=== PATIENT | male | born 1955 | race Caucasian/White ===

== ENCOUNTER 2016-08-15 14:36 | Observation (INO) | payer OTHER ==
--- NOTE | 2016-08-15 15:13 | EDPHY ---
H & P Stated Complaint: dx DVT today, L leg Time Seen by Provider: 08/15/16 14:52 HPI/ROS: CHIEF COMPLAINT: Left leg pain and swelling HISTORY OF PRESENT ILLNESS: The patient is a 60-year-old man who comes to the emergency department complete left leg pain and swelling. He was referred to us from Radiology where he had a ultrasound positive for extensive left-sided DVT from the proximal femoral vein down to the calf including the popliteal vein. Not including the common femoral vein. He states that he began noticing pain in his thigh and then lower leg 1 week ago. He has not had any recent surgery. He did have this left knee replaced in December of 2015. [place] [address] [place]. He does not smoke. No recent procedures. He does have a history of DVT in the other side over 20 years ago treated with Coumadin for 1 month. REVIEW OF SYSTEMS: Constitutional: denies: chills, fever, recent illness, recent injury EENTM: denies: blurred vision, double vision, nose congestion Respiratory: denies: cough, shortness of breath Cardiac: denies: chest pain, irregular heart rate, lightheadedness, palpitations Gastrointestinal/Abdominal: denies: abdominal pain, diarrhea, nausea, vomiting, blood streaked stools Genitourinary: denies: dysuria, frequency, hematuria, pain Musculoskeletal: See HPI Skin: denies: lesions, rash, jaundice, bruising Neurological: denies: headache, numbness, paresthesia, tingling, dizziness, weakness Hematologic/Lymphatic: denies: blood clots, easy bleeding, easy bruising Immunologic/allergic: denies: HIV/AIDS, transplant EXAM: GENERAL: Well-appearing, well-nourished and in no acute distress. HEAD: Atraumatic, normocephalic. EYES: Pupils equal round and reactive to light, extraocular movements intact, sclera anicteric, conjunctiva are normal. ENT: TMs normal, nares patent, oropharynx clear without exudates. Moist mucous membranes. NECK: Normal range of motion, supple without lymphadenopathy or JVD. LUNGS: Breath sounds clear to auscultation bilaterally and equal. No wheezes rales or rhonchi. HEART: Regular rate and rhythm without murmurs, rubs or gallops. ABDOMEN: Soft, nontender, normoactive bowel sounds. No guarding, no rebound. No masses appreciated. BACK: No CVA tenderness, no spinal tenderness, step-offs or deformities EXTREMITIES: Left leg mild edema, normal pulses and sensation, normal temperature, normal color NEUROLOGICAL: Cranial nerves II through XII grossly intact. Normal speech, normal gait. 5/5 strength, normal movement in all extremities, normal sensation PSYCH: Normal mood, normal affect. SKIN: Warm, dry, normal turgor, no visible rashes or lesions. Source: Patient Exam Limitations: No limitations - Personal History Current Tetanus/Diphtheria Vaccine: Yes Current Tetanus Diphtheria and Acellular Pertussis (TDAP): Yes Tetanus Vaccine Date: 2011 - Medical/Surgical History Hx Asthma: No Hx Chronic Respiratory Disease: No Hx Diabetes: No Hx Cardiac Disease: No Hx Renal Disease: No Hx Cirrhosis: No Hx Alcoholism: No Hx HIV/AIDS: No Hx Splenectomy or Spleen Trauma: No Other PMH: htn, dvt in 89 after knee surgery, arthroscopic kneee x 4 - Family History Significant Family History: No pertinent family hx - Social History Smoking Status: Never smoked Alcohol Use: Sober Drug Use: None Constitutional: Initial Vital Signs Temperature (C) 36.4 C 08/15/16 14:44 Heart Rate 108 H 08/15/16 14:44 Respiratory Rate 16 08/15/16 14:44 Blood Pressure 178/105 H 08/15/16 14:44 O2 Sat (%) 96 08/15/16 14:44 O2 Delivery Mode Room Air Allergies/Adverse Reactions: No Known Allergies Allergy (Verified 08/15/16 14:42) Home Medications: Medication Instructions Recorded Losartan/Hydrochlorothiazide 1 each PO DAILY 08/15/16 [Hyzaar 100-12.5 Tablet] Medical Decision Making ED Course/Re-evaluation: I spoke with the physician title i instructional assistant Andrew Andrew for Dr. Rai. She states that they typically keep these patients in the hospital with more extensive DVTs rather than outpatient Xarelto. I will start him on heparin and consult the hospital service. Dr. Felton request Lovenox. 3:30 p.m. I had consulted interventional Radiology who will assess for possibility of thrombectomy. Differential Diagnosis: Partial list of the Differential diagnosis considered include but were not limited to; DVT, thrombus, ischemia, aneurysm, dolens and although unlikely based on the history and physical exam, I also considered infection, dissection. - Data Points Laboratory Results: Laboratory Results 08/15/16 15:15 08/15/16 15:15 08/15/16 15:15 WBC 11.43 H 10^3/uL (3.80-9.50) RBC 5.67 10^6/uL (4.40-6.38) Hgb 14.8 g/dL (13.7-17.5) Hct 44.6 % (40.0-51.0) MCV 78.7 L fL (81.5-99.8) MCH 26.1 L pg (27.9-34.1) MCHC 33.2 g/dL (32.4-36.7) RDW 13.8 % (11.5-15.2) Plt Count 273 10^3/uL (150-400) MPV 9.2 fL (8.7-11.7) Neut % (Auto) 69.5 % (39.3-74.2) Lymph % (Auto) 17.7 % (15.0-45.0) [place] % (Auto) 9.7 % (4.5-13.0) Eos % (Auto) 2.4 % (0.6-7.6) Baso % (Auto) 0.3 % (0.3-1.7) Nucleat RBC Rel Count 0.0 % (0.0-0.2) Absolute Neuts (auto) 7.95 H 10^3/uL (1.70-6.50) Absolute Lymphs (auto) 2.02 10^3/uL (1.00-3.00) Absolute Monos (auto) 1.11 H 10^3/uL (0.30-0.80) Absolute Eos (auto) 0.27 10^3/uL (0.03-0.40) Absolute Basos (auto) 0.03 10^3/uL (0.02-0.10) Absolute Nucleated RBC 0.00 10^3/uL (0-0.01) Immature Gran % 0.4 % (0.0-1.1) Immature Gran # 0.05 10^3/uL (0.00-0.10) PT 13.5 SEC (12.0-15.0) INR 1.04 (0.83-1.16) APTT 30.2 SEC (23.0-38.0) Sodium 141 mEq/L (134-144) Potassium 4.0 mEq/L (3.5-5.2) Chloride 102 mEq/L (97-110) Carbon Dioxide 24 mEq/l (22-31) Anion Gap 15 mEq/L (8-16) BUN 17 mg/dL (7-23) Creatinine 0.9 mg/dL (0.7-1.3) Estimated GFR > 60 Glucose 84 mg/dL (70-100) Calcium 9.7 mg/dL (8.5-10.4) Medications Given: Discontinued Medications Enoxaparin Sodium (Lovenox) 90 mg SC ONCE ONE Stop: 08/15/16 16:01 Last Admin: 08/15/16 16:09 Dose: 90 mg Departure - Departure Disposition: [facility] Inpatient Acute Clinical Impression: DVT (deep venous thrombosis) Qualifiers: DVT location: lower extremity Affected thrombotic vein of extremity: femoral Laterality: left Chronicity: acute Qualifier Code: (I82.412) Acute embolism and thrombosis of left femoral vein Condition: Fair
[2016-08-15 15:32] LABS: % IMMATURE GRANULYOCYTES 0.4 % (0.0-1.1); ABSOLUTE IMMATURE GRANULOCYTES 0.05 10^3/uL (0.00-0.10); ADD DIFF? NO; ADD MORPH? NO; ADD SCAN? NO; ATYPICAL LYMPHOCYTE FLAG 0 (0-99); FRAGMENT RBC FLAG 0 (0-99); HEMATOCRIT 44.6 % (40.0-51.0); HEMOGLOBIN 14.8 g/dL (13.7-17.5); LEFT SHIFT FLG 0 (0-99); LIPEMIA HEMOLYSIS FLAG 80 (0-99); MEAN CELL HEMOGLOBIN 26.1 pg (27.9-34.1); MEAN CELL HEMOGLOBIN CONCENTR. 33.2 g/dL (32.4-36.7); MEAN CELL VOLUME 78.7 fL (81.5-99.8); MEAN PLATELET VOLUME 9.2 fL (8.7-11.7); PLATELET CLUMPS FLAG 0 (0-99); PLATELET COUNT 273 10^3/uL (150-400); RED BLOOD CELL COUNT 5.67 10^6/uL (4.40-6.38); RED CELL DISTRIBUTION WIDTH 13.8 % (11.5-15.2)
[2016-08-15 15:41] LABS: INR 1.04 (0.83-1.16); PROTIME(PATIENT) 13.5 SEC (12.0-15.0)
[2016-08-15 15:42] LABS: APTT 30.2 SEC (23.0-38.0)
[2016-08-15 15:44] LABS: ANION GAP 15 mEq/L (8-16); CALCIUM 9.7 mg/dL (8.5-10.4); CARBON DIOXIDE 24 mEq/l (22-31); CHLORIDE 102 mEq/L (97-110); CREATININE 0.9 mg/dL (0.7-1.3); GLOMERULAR FILTRATION RATE > 60; GLUCOSE 84 mg/dL (70-100); SODIUM 141 mEq/L (134-144)
[2016-08-15] MEDS ORDERED: ONDANSETRON 4 MG/2 ML VIAL IVP PRN (15:57)
[2016-08-15] MEDS ORDERED: ACETAMINOPHEN 325 MG TAB PO PRN (15:57)
[2016-08-15] MEDS ORDERED: ONDANSETRON DISINTEGRATING 4 MG TAB PO PRN (15:57)
[2016-08-15] MEDS ORDERED: ENOXAPARIN 100 MG/ML SYR SC ONE (16:00)
--- NOTE | 2016-08-15 17:34 | GHP ---
[f rep st] HISTORY AND PHYSICAL DATE OF ADMISSION: 08/15/2016 CHIEF COMPLAINT: Left lower extremity pain. HISTORY OF PRESENT ILLNESS: A 60-year-old male who had a left total knee arthroplasty in December of 2015 , prescribed postoperative prophylaxis with Xarelto, who presents with complaints of progressing disc omfort of left lower extremity and swelling. Patient was sent by his outpatient orthopedic team for ultrasound and found to have a large DVT from his left femoral down to the popliteal. Patient denies any numbness or tingling in that extremity. Is experiencing some pain, but mild. Denies any pleuriti c chest pain, any shortness of breath, any nausea, vomiting, changes in his bowel habits, dysuria, he maturia. The patient reports that during his right total knee arthroplasty, he had an unusual and pa inful sensation of blood rushing into his extremity and he attributed that to his Xarelto prophylaxis therefore, chose not to use the medication during his left knee arthroplasty. Patient has had a his tory of previous postoperative DVT associated with surgery performed in the . For that, he was tr eated with warfarin therapy for several months postoperatively. PAST MEDICAL HISTORY: Hypertension. FAMILY HISTORY: Negative for any known clotting disorders. SOCIAL HISTORY: Negative for tobacco. Drinks a couple beers at night. Has not used marijuana in ov er a year. ADVANCED DIRECTIVES: He is full cor, full tube. His would be his medical decision-maker. REVIEW OF SYSTEMS: A 10-point review of systems is negative with the exception of that reported in t he HPI. PHYSICAL EXAMINATION: VITAL SIGNS: Blood pressure is 164/94, heart rate 84, respiratory rate 16, 95 % on room air, 36.9. GENERAL: This is a healthy-appearing middle-aged male, in no acute distress. HEENT: Notable for moist mucous membranes. Eyes are negative for any icterus. CARDIAC: Patient is regular rate and rhythm. PULMONARY: Good respiratory effort, is clear to auscultation bilaterally. GASTROINTESTINAL: Positive bowel sounds. Soft, nontender in all 4 quadrants. MUSCULOSKELETAL: N otable for trace lower extremity edema on the left, none on the right. CARDIOVASCULAR: Patient has palpable pulses bilaterally pedally. SKIN: Negative for any rashes. NEUROLOGIC: He is alert and oriented x3. PSYCHIATRIC: Pleasant and cooperative on interview and examination. IMAGING: Ultrasound of the lower extremity, which I reviewed, shows a large DVT in the left lower ex tremity, including femoral, popliteal, and posterior tibioperoneal veins. LABORATORY DATA: White count 11.4, hematocrit 44.6, platelet count of 273. INR 1.04. Creatinine 0.9 . Telemetry, which I personally reviewed and interpreted, shows sinus rhythm. ASSESSMENT AND PLAN: This is a 60-year-old male, presenting with left lower extremity swelling and p ain. 1. Acute left lower extremity deep venous thrombosis: Have high suspicion that the patient may have been growing this DVT in his left lower extremity since his postoperative time period based on his history and lack of use of prophylaxis postop. Certainly, cannot confirm this based on the radiograp hic findings of his thrombus. Will initiate Lovenox therapy this evening. Dr. Rai has requested the patient be admitted and monitored overnight, and choice of anticoagulant can be chosen by Fredi and the patient in the morning. He obviously has concerns about the use of Xarelto. Interventional Radiology has been consulted from the emergency department to evaluate the imaging and make recommend ations regarding thrombectomy versus thrombolysis if appropriate based on clot size. At this time, t he patient has good pulses and his pain is not difficult to control. It is unlikely that they will c hoose to intervene. 2. Recurrent deep venous thrombosis: Again, both have happened in a postoperative time period. It may be appropriate for the patient to be evaluated by Hematology/Oncology as an outpatient down the r oad. 3. Hypertension: Will continue patient's home antihypertensives once reconciled. 4. Prophylaxis: Will be on treatment dosed Lovenox overnight. 5. Diet: Regular. DISPOSITION: I expect less than 2-midnights as the patient is presenting with DVT, normal vital sign s and if remains stable, should be a candidate for discharge. I spoke and reviewed the case with the emergency room physician. Patient will be triaged to the [facility] observation unit for care. /[id number]/MODL
[2016-08-15] MEDS ORDERED: ACETAMN/DIPHENHYDRAMINE 500/25MG TAB PO SCH (23:00)
[2016-08-16 05:48] LABS: % IMMATURE GRANULYOCYTES 0.4 % (0.0-1.1); ABSOLUTE IMMATURE GRANULOCYTES 0.04 10^3/uL (0.00-0.10); ADD DIFF? NO; ADD MORPH? NO; ADD SCAN? NO; ATYPICAL LYMPHOCYTE FLAG 10 (0-99); FRAGMENT RBC FLAG 0 (0-99); HEMATOCRIT 43.3 % (40.0-51.0); HEMOGLOBIN 13.9 g/dL (13.7-17.5); LEFT SHIFT FLG 0 (0-99); LIPEMIA HEMOLYSIS FLAG 80 (0-99); MEAN CELL HEMOGLOBIN 25.7 pg (27.9-34.1); MEAN CELL HEMOGLOBIN CONCENTR. 32.1 g/dL (32.4-36.7); MEAN CELL VOLUME 80.2 fL (81.5-99.8); MEAN PLATELET VOLUME 9.5 fL (8.7-11.7); PLATELET CLUMPS FLAG 0 (0-99); PLATELET COUNT 251 10^3/uL (150-400)
[2016-08-16 06:10] LABS: ANION GAP 12 mEq/L (8-16); CALCIUM 8.8 mg/dL (8.5-10.4); CARBON DIOXIDE 27 mEq/l (22-31); CHLORIDE 103 mEq/L (97-110); CREATININE 0.9 mg/dL (0.7-1.3); GLOMERULAR FILTRATION RATE > 60; GLUCOSE 89 mg/dL (70-100); SODIUM 142 mEq/L (134-144)
[2016-08-16 08:03] VITALS: BP 133/81; PULSE 82; RESP 16; TEMP 98.3; O2SAT 93
[2016-08-16] MEDS ORDERED: ENOXAPARIN 80 MG/0.8 ML SYR SC SCH (09:00)
[2016-08-16] MEDS ORDERED: NON-FORMULARY NEW DRUG (Losartan/Hydrochlorothiazide [Hyzaar 100-12.5 Tablet] 1 EACH) PO SCH (09:00)
[2016-08-16] MEDS ORDERED: LOSARTAN POTASSIUM 50 MG TAB PO SCH (09:00)
[2016-08-16] MEDS ORDERED: LOSARTAN/HCTZ 50/12.5 1 TAB PO SCH (09:00)
[2016-08-16] MEDS ORDERED: ENOXAPARIN 100 MG/ML SYR SC SCH (09:00)
[2016-08-16] MEDS ORDERED: WARFARIN SODIUM 5 MG TAB PO ONE (15:08)
--- NOTE | 2016-08-16 16:50 | PDDCSUM ---
Discharge Summary Discharge Summary: DISCHARGE SUMMARY FOLLOW-UP ITEMS: Follow-up PT and INR on 08/21/[address] [facility]. DATE OF ADMISSION: 08/15/2016 DATE OF DISCHARGE: 08/16/2016 DISCHARGE DIAGNOSES: 1. Acute deep venous thrombosis CONSULTATIONS: Orthopedics by Dr. Rai, interventional Radiology by Dr. Pride PROCEDURES / IMAGING: Lower extremity ultrasound demonstrating left lower extremity deep venous thrombosis CHIEF COMPLAINT: Left lower extremity heaviness and swelling SUBJECTIVE: Patient reports that he is able to ambulate safely and is not experiencing pain in his left lower extremity PHYSICAL EXAM ON DISCHARGE: Systolic blood pressure is 1 30, heart rate in the 80s, afebrile overnight, satting well on room air, pulses intact in his left lower extremity dorsalis pedis, patient has evidence of soft tissue edema but there is minimal tenderness in the left lower extremity, motor strength 5/5 left hip flexor LABS ON DISCHARGE: Hemoglobin 13.9, creatinine 0.8, white blood cell count [id number] HOSPITAL COURSE BY PROBLEM: 1. Acute deep venous thrombosis. Located in the left lower extremity, most likely provoked in the setting of recent immobility, unlikely to be related to his left knee orthopedic surgery which took place approximately 6 months ago. This should be characterized as a recurrent deep venous thrombosis given that patient did experience 1 in his right lower extremity following surgery in his right knee. The patient will require at least 3 months of systemic anticoagulation then may require lifelong systemic anticoagulation thereafter, to be determined by either his primary care provider or a hematology consultation if deemed necessary in the future. The patient was placed on Lovenox bridge with Coumadin, followup PT and INR on 08/21. The patient received Coumadin teaching prior to discharge. The patient demonstrated no evidence of compartment syndrome or mobility limiting clot, and lysis of clot by intervention Radiology was not indicated. All potential risks of bleeding were discussed with the patient. DISCHARGE MEDICATIONS: Please see official discharge medication reconciliation sheet in chart , Lovenox 90 mg twice daily for a total of 5 days, Coumadin 5 mg daily. DISCHARGE INSTRUCTIONS: 1. Avoid nonsteroidal anti-inflammatory medications 2. Repeat PT and INR on 08/21/2016 with results to PCP at [facility]. TIME SPENT: Greater than 30 minutes were spent on direct patient care, as well as discharge planning and preparation.
== END 2016-08-16 17:48 | disposition home or self-care (01) ==
LOC: F1N 16:39
PROVIDERS: ADMIT Hospitalist; ATTEND Hospitalist
DX: I82.412 Acute embolism and thrombosis of left femoral vein (principal); I82.432 Acute embolism and thrombosis of left popliteal vein; I82.442 Acute embolism and thrombosis of left tibial vein
CPT/HCPCS: 99285; G0378; J1650

== ENCOUNTER → 2016-08-15 | Outpatient (CLI) | payer OTHER ==
--- NOTE | 2016-08-15 14:31 | US ---
Left Lower Extremity Deep Venous Duplex Ultrasound - August 15, 2016 Indication: Left leg swelling. Technique: The left lower extremity deep venous system and veins of the proximal calf were interrogat ed with grayscale, color, and spectral Doppler imaging. Findings: Acute occlusive deep venous thrombosis throughout the femoral, popliteal, paired tibial and peroneal veins does not compress or have internal blood flow on color Doppler imaging. The clot exte nds superiorly to the drainage of the greater saphenous vein. The greater saphenous vein and common f emoral vein completely compress. Impression: Extensive deep venous thrombosis in the left lower extremity involving the entire femoral , popliteal, and posterior tibial and peroneal veins. No extension into the common femoral vein. Comment: The positive results were discussed with Dr. Connor Andrew and Dr. Neil Cali at 2:20 p.m. on August 15, 2016.
== END ==
LOC: FIMAGING 13:25
PROVIDERS: ATTEND Physician Assistant
DX: I82.4Z2 Acute embolism and thrombosis of unspecified deep veins of left distal lower extremity (principal)

== ENCOUNTER → 2016-12-13 | Outpatient (CLI) | payer OTHER | LOC: CIMAGING 14:50 | PROVIDERS: ATTEND Internal Medicine Hematology & Oncology | DX: I82.402 Acute embolism and thrombosis of unspecified deep veins of left lower extremity (principal); Z79.01 Long term (current) use of anticoagulants | CPT/HCPCS: 93971-PO ==

== ENCOUNTER 2017-03-15 19:46 | Emergency (ER) | payer OTHER ==
[2017-03-15 19:58] VITALS: BP 148/90; PULSE 92; RESP 18; TEMP 98.6; O2SAT 93
--- NOTE | 2017-03-15 20:37 | EDPHY ---
H & P Time Seen by Provider: 03/15/17 20:23 HPI/ROS: CHIEF COMPLAINT: Right elbow swelling HISTORY OF PRESENT ILLNESS: 61-year-old male with a history of DVT on Coumadin presents with right elbow swelling. Today he was hammering a lot, using his right arm. After hammering, he noticed gradually increasing swelling of the right elbow. He also scraped his elbow on some tile. No associated pain. No prior similar symptoms. ROS: No numbness, weakness, fever, bleeding, syncopal episode, other injury. Past Medical/Surgical History: Factor 5 Leiden deficiency Social History: Smoking Status: Never smoked Physical Exam: Alert and oriented, pleasant Extremities: right elbow-swelling over the olecranon bursa, of right elbow range of motion without pain Skin: tiny abrasion over the proximal forearm, no erythema Neuro: Motor and sensory intact Vascular: Capillary refill brisk distally Constitutional: Initial Vital Signs Temperature (C) 37.0 C 03/15/17 19:50 Heart Rate 92 03/15/17 19:50 Respiratory Rate 18 03/15/17 19:50 Blood Pressure 148/90 H 03/15/17 19:50 O2 Sat (%) 93 03/15/17 19:50 O2 Delivery Mode Room Air Allergies/Adverse Reactions: No Known Allergies Allergy (Verified 03/15/17 19:48) Home Medications: Medication Instructions Recorded Losartan/Hydrochlorothiazide 1 each PO DAILY 08/15/16 [Hyzaar 100-12.5 Tablet] Acetaminophen [Tylenol 325mg (*)] 650 mg PO Q4HRS PRN #0 tab 08/16/16 Warfarin Sodium [Coumadin 5MG (*)] 5 mg PO DAILY16 #30 tab 08/16/16 Departure - Departure Disposition: Home, Routine, Self-Care Clinical Impression: Olecranon bursitis of right elbow Condition: Good Instructions: Elbow Bursitis (ED) Additional Instructions: Apply ice for 20 minutes every 2-3 hours while swelling persists. Avoid repetitive motion of the right elbow. Return for redness, fever or increasing pain of the right elbow. Referrals: Alexander Daley MD [Primary Care Provider] - As per Instructions
== END 2017-03-15 21:00 | disposition home or self-care (01) ==
DX: M70.21 Olecranon bursitis, right elbow (principal)

== ENCOUNTER → 2017-05-30 | Outpatient (CLI) | payer OTHER | LOC: FIMAGING 08:35 | PROVIDERS: ATTEND Internal Medicine Hematology & Oncology ==

== ENCOUNTER 2018-04-25 10:55 | Observation (INO) | payer OTHER ==
[2018-04-25] MEDS ORDERED: NS 500 ML IV ONE (11:05)
[2018-04-25 11:21] LABS: PLATELET COUNT 218 10^3/uL (150-400)
[2018-04-25 11:29] LABS: INR 0.98 (0.83-1.16); PROTIME(PATIENT) 13.2 SEC (12.0-15.0)
[2018-04-25] MEDS ORDERED: IOPAMIDOL (ISOVUE 370) 100 ML BTL IV ONE (11:44)
--- NOTE | 2018-04-25 11:45 | EDPHY ---
H & P Time Seen by Provider: 04/25/18 11:05 HPI/ROS: HPI Left-sided rib pain. 62-year-old male by private vehicle with his . This patient reports that he woke up this morning with a sensation of a mild dull ache left posterior lateral chest wall area. He reports about an hour prior to arrival he developed much more significant pain described as a deep sharp and stabbing pain. He reports shortness of breath associated with this pain and pain worse when expanding his chest wall with breathing. He has a prior history of DVT. He also has a history of factor 5 Leiden deficiency. He was on Coumadin up until about 6 months ago. He has been off of Coumadin since then. He does take a baby aspirin daily. He does not take any other antiplatelet or anticoagulant medications. Please see review of systems for further details. ROS: Constitutional: No fever, no chills. No weakness. Eyes: No discharge. No changes in vision. ENT: No sore throat. No nasal congestion or rhinorrhea. Respiratory: No cough. As above. Cardiac: As above, no palpitations. Gastrointestinal: No abdominal pain, no vomiting, no diarrhea. Genitourinary: No hematuria. No dysuria or increased frequency with urination. Musculoskeletal: As above. No neck pain. No myalgias or arthralgias. Skin: No rashes. Neurological: No headache. No focal weakness or altered sensation. Past medical history: Bilateral knee replacement surgery, sleep apnea, vasectomy, concussion. As above. Social history: Nonsmoker. No alcohol. Here with his . Physical Exam: General Appearance: Alert, no distress, he appears uncomfortable. This patient is responding to questions appropriately and in full sentences. This patient appears well-hydrated and well-nourished. Eyes: Pupils equal and round no pallor or injection. No lid edema, erythema or injection. Respiratory: There are no retractions, lungs are clear to auscultation with good air movement bilaterally. Cardiovascular: Regular rate and rhythm. No murmur. Gastrointestinal: Abdomen is soft and nontender, no masses, bowel sounds normal. No focal tenderness at McBurney's point. No [place] sign. Neurological: Motor sensory function is grossly intact. Cranial nerves are normal. Gait is normal. Skin: Warm and dry, no rashes on inspection of the chest wall. Musculoskeletal: Neck is supple and nontender. Extremities are symmetrical. All joints range without pain or impingement. Psychiatric: No agitation. No depression. Database: EKG: EKG time is 11:12 a.m.; EKG shows a narrow complex normal sinus rhythm with a ventricular rate of 80. The MI, QRS, QT intervals are within normal limits. There are no ST-T wave changes indicative of ischemic or injury pattern. No evidence of right heart strain. Interpreted by me. Imaging: Chest x-ray AP portable; the cardiac mediastinal silhouette is unremarkable. No evidence of infiltrate or pneumothorax. No acute cardiopulmonary disease process noted. Interpreted by me. CT angiogram of chest: Significant for both left upper and left lower lobe pulmonary embolism, segmental, moderate volume, infarction involving the lower lobe. Results discussed with staff radiologist Dr. Martín Westbrook. Procedures: Emergency department course: Triage vital signs reviewed. The patient is moderately hypertensive. Vital signs are otherwise normal. An IV was placed. He was placed on oxygen 2 L by nasal cannula. He was placed on a product manager. EKG obtained and reviewed by myself. He declines pain medication at this time. 11:45 a.m., patient re-evaluated. Vital signs remained stable. He again declines pain medication. Discussed results of his emergency department workup thus far. Explained reason for CT angiogram of chest. He endorses. 12:45 p.m., patient re-evaluated. Resting comfortably at this time. Results of CT angiogram and diagnosis of pulmonary embolism discussed with him and his . He will be started on subcutaneous Lovenox shortly per protocol dosing. He will be given IV hydromorphone at 0.5 mg as needed for pain. I explained we would admit him to the hospitalist service. All of his questions were answered. He endorses. 12:50 p.m., spoke with on-call hospitalist Dr. Terrazas. Case discussed in detail with her. She accepts this patient for admission. Patient's remaining emergency department course under my care has been uneventful. Patient admitted in stable condition to telemetry. Differential Diagnosis: The differential diagnosis on this patient includes but is not limited to pulmonary embolism, pleurisy, pneumonia. This represents a partial list of diagnoses considered. These considerations are based on history, physical exam , past history, reassessment and diagnostic testing. Smoking Status: Never smoked Constitutional: Initial Vital Signs Temperature (C) 36.7 C 04/25/18 10:59 Heart Rate 93 04/25/18 10:59 Respiratory Rate 18 04/25/18 10:59 Blood Pressure 167/100 H 04/25/18 10:59 O2 Sat (%) 93 04/25/18 10:59 O2 Delivery Mode Nasal Cannula O2 (L/minute) 2 Allergies/Adverse Reactions: No Known Allergies Allergy (Verified 04/25/18 11:02) Home Medications: Medication Instructions Recorded Losartan/Hydrochlorothiazide 1 each PO DAILY 08/15/16 [Hyzaar 100-12.5 Tablet] Acetaminophen [Tylenol 325mg (*)] 650 mg PO Q4HRS PRN #0 tab 08/16/16 Warfarin Sodium [Coumadin 5MG (*)] 5 mg PO DAILY16 #30 tab 08/16/16 Medical Decision Making - Diagnostics Imaging Results: Imaging Impressions Chest X-Ray 04/25/18 11:05 Impression: No source for left chest pain identified. Chest/Thorax CTA 04/25/18 11:40 Impression: 1. Moderate volume segmental pulmonary emboli inferior aspect left upper lobe and left lower lobe with associated pulmonary infarct anterolateral left lower lobe. Findings discussed with Sukhi Wilson MD at 12:37 hour, 04/25/2018. - Data Points Laboratory Results: Laboratory Results 04/25/18 11:14 04/25/18 11:14 04/25/18 04/25/18 04/25/18 11:16 11:14 11:14 WBC RBC Hgb Hct MCV MCH MCHC RDW Plt Count MPV Neut % (Auto) Lymph % (Auto) [place] % (Auto) Eos % (Auto) Baso % (Auto) Nucleat RBC Rel Count Absolute Neuts (auto) Absolute Lymphs (auto) Absolute Monos (auto) Absolute Eos (auto) Absolute Basos (auto) Absolute Nucleated RBC Immature Gran % Immature Gran # PT 13.2 SEC SEC (12.0-15.0) INR 0.98 (0.83-1.16) APTT 26.8 SEC SEC (23.0-38.0) D-Dimer 1.77 ug/mLFEU H ug/mLFEU (0.00-0.50) Sodium 141 mEq/L mEq/L (135-145) Potassium 3.6 mEq/L mEq/L (3.3-5.0) Chloride 103 mEq/L mEq/L (97-110) Carbon Dioxide 25 mEq/l mEq/l (22-31) Anion Gap 13 mEq/L mEq/L (8-16) BUN 22 mg/dL mg/dL (7-23) Creatinine 0.8 mg/dL mg/dL (0.7-1.3) Estimated GFR > 60 Glucose 106 mg/dL H mg/dL (70-100) Calcium 10.1 mg/dL mg/dL (8.5-10.4) POC Troponin I 0.00 ng/mL ng/mL (0.00-0.08) NT-Pro-B Natriuret Pep 52 pg/mL pg/mL (0-125) 04/25/18 11:14 WBC 12.88 10^3/uL H 10^3/uL (3.80-9.50) RBC 5.28 10^6/uL 10^6/uL (4.40-6.38) Hgb 14.3 g/dL g/dL (13.7-17.5) Hct 42.8 % % (40.0-51.0) MCV 81.1 fL L fL (81.5-99.8) MCH 27.1 pg L pg (27.9-34.1) MCHC 33.4 g/dL g/dL (32.4-36.7) RDW 14.6 % % (11.5-15.2) Plt Count 218 10^3/uL 10^3/uL (150-400) MPV 10.3 fL fL (8.7-11.7) Neut % (Auto) 64.6 % % (39.3-74.2) Lymph % (Auto) 21.0 % % (15.0-45.0) [place] % (Auto) 10.6 % % (4.5-13.0) Eos % (Auto) 3.3 % % (0.6-7.6) Baso % (Auto) 0.3 % % (0.3-1.7) Nucleat RBC Rel Count 0.0 % % (0.0-0.2) Absolute Neuts (auto) 8.32 10^3/uL H 10^3/uL (1.70-6.50) Absolute Lymphs (auto) 2.71 10^3/uL 10^3/uL (1.00-3.00) Absolute Monos (auto) 1.36 10^3/uL H 10^3/uL (0.30-0.80) Absolute Eos (auto) 0.42 10^3/uL H 10^3/uL (0.03-0.40) Absolute Basos (auto) 0.04 10^3/uL 10^3/uL (0.02-0.10) Absolute Nucleated RBC 0.00 10^3/uL 10^3/uL (0-0.01) Immature Gran % 0.2 % % (0.0-1.1) Immature Gran # 0.03 10^3/uL 10^3/uL (0.00-0.10) PT INR APTT D-Dimer Sodium Potassium Chloride Carbon Dioxide Anion Gap BUN Creatinine Estimated GFR Glucose Calcium POC Troponin I NT-Pro-B Natriuret Pep Medications Given: Discontinued Medications Sodium Chloride (Ns) 500 mls @ 1,000 mls/hr IV EDNOW ONE PRN Reason: Protocol Stop: 04/25/18 11:34 Last Admin: 04/25/18 11:17 Dose: 500 mls Point of Care Test Results: Chemistry 04/25/18 11:16 POC Troponin I 0.00 ng/mL ng/mL (0.00-0.08) Departure - Departure Disposition: [facility] Inpatient Acute Clinical Impression: Pulmonary embolism Referrals: Alexander Daley MD [Primary Care Provider] - As per Instructions
[2018-04-25] MEDS ORDERED: ENOXAPARIN 100 MG/ML SYR SC ONE (12:45)
[2018-04-25] MEDS ORDERED: ACETAMINOPHEN 325 MG TAB PO PRN (12:55)
[2018-04-25] MEDS ORDERED: ONDANSETRON 4 MG/2 ML VIAL IVP PRN (12:55)
[2018-04-25] MEDS ORDERED: ONDANSETRON DISINTEGRATING 4 MG TAB PO PRN (12:55)
--- NOTE | 2018-04-25 13:47 | CPEKG ---
Test Reason : OPEN Blood Pressure : / mmHG Vent. Rate : 080 BPM Atrial Rate : 079 BPM P-R Int : 145 ms QRS Dur : 082 ms QT Int : 355 ms P-R-T Axes : 054 023 033 degrees QTc Int : 410 ms Sinus rhythm Confirmed by Sukhi Wilson ([id number]) on 04/25/2018 1:47:39 PM Referred By: Confirmed By:Sukhi Wilson
[2018-04-25] MEDS ORDERED: HYDROCODONE/APAP 5/325 TAB PO PRN (14:03)
--- NOTE | 2018-04-25 14:48 | GHP ---
DATE OF ADMISSION: 04/25/2018 CHIEF COMPLAINT: Bilateral pulmonary embolism, shortness of breath. HISTORY OF PRESENT ILLNESS: A 62-year-old male with factor V Leiden deficiency and prior bilateral leg DVTs, presenting with chest pain. He awoke this morning with a dull ache in his posterior chest, feeling like he was getting ill. 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 It was stabbing in nature. Pain was so bad that he could not speak when he arrived to the emergency room. His most recent left leg clot was in 2017, and he has only been taking a full- dose aspirin. Denies dizziness or lightheadedness. No loss of consciousness. No fevers, chills, or sweats. REVIEW OF SYSTEMS: I completed a 10-point review of systems, negative except as noted in HPI. PAST MEDICAL HISTORY: 1. Factor V Leiden. 2. Provoked right leg DVT in 1990, due to knee surgery. 3. Left leg DVT 2017. 4. Hypertension. PAST SURGICAL HISTORY: Bilateral TKA, left inguinal hernia, vasectomy. SOCIAL HISTORY: Lives in [place]. Drinks 2 beers a night. Lives with his . Works in construction. Denies illicits. FAMILY HISTORY: No clots. HOME MEDICATIONS: Full-dose aspirin, losartan/hydrochlorothiazide, Tylenol as needed. ALLERGIES: None. DATA REVIEWED: Labs: WBC 12, hemoglobin 14, hematocrit 42, platelets 218. D- dimer is 1.77. Sodium 141, potassium 3.6, chloride 106, carbon dioxide 25, creatinine 0.8. Troponin 0.00. BNP is 52. Calcium is 10. CTA: Moderate volume segmental pulmonary embolism, inferior aspect of left upper and lower lobes with pulmonary infarct. EKG is personally reviewed by me. Normal sinus rhythm. PHYSICAL EXAMINATION: VITAL SIGNS: Temperature 36.7, blood pressure was 167/ 100, now 145/95, heart rate is in the 90s, respirations 18, 96% on 2 L, 93% on room air. GENERAL: He is well appearing, in no acute distress. HEENT: PERRLA. Moist mucous membranes. CV: Regular rate and rhythm. LUNGS: Clear. Decreased breath sounds at left base, but no crackles or wheezing. GI: Soft , nontender, nondistended. Positive bowel sounds. : No [place]. MUSCULOSKELETAL: 5/5 upper and lower extremity strength. No leg swelling or tenderness. NEURO: 2 through 12 intact. PSYCH: Alert and oriented x3. ASSESSMENT AND PLAN: 1. Acute bilateral pulmonary embolism: Has known left leg deep vein thrombosis , last evaluated in May 2017, that showed persistent extensive deep vein thrombosis involving the left femoral, popliteal, and calf veins. He has not been adequately anticoagulated, and now requires lifelong anticoagulation. Start Lovenox b.i.d. He and his will call insurance and determine if a novel agent will be covered. He is hemodynamically stable with no evidence of right heart strain. 2. Acute chest pain: P.r.n. Toradol, Vicodin. 3. Hypertension: Resume home medications. 4. Diet: Regular. 5. Deep vein thrombosis prophylaxis: He is on Lovenox. 6. Disposition: Warrants observation admission for acute bilateral pulmonary embolism, and pain control requiring IV medications and cardiac monitoring. /[id number]/MODL MTDD
[2018-04-25] MEDS: KETOROLAC 15 MG/1 ML SDV IVP SCH ×2 (17:17→23:06)
[2018-04-25] MEDS: ENOXAPARIN 100 MG/ML SYR SC SCH (23:07)
[2018-04-26] MEDS: KETOROLAC 15 MG/1 ML SDV IVP SCH ×2 (06:09→11:47)
[2018-04-26] MEDS: ENOXAPARIN 100 MG/ML SYR SC SCH (08:33)
[2018-04-26] MEDS ORDERED: Herbals/Supplements -Info Only PO SCH (09:00)
[2018-04-26] MEDS ORDERED: LOSARTAN POTASSIUM 50 MG TAB PO SCH (09:00)
[2018-04-26] MEDS ORDERED: LOSARTAN/HCTZ 50/12.5 1 TAB PO SCH (09:00)
[2018-04-26 11:26] VITALS: BP 144/92
[2018-04-26] MEDS ORDERED: WARFARIN SODIUM 5 MG TAB PO ONE ×2 (11:52→12:30)
--- NOTE | 2018-04-26 12:00 | ASDISCHSUM ---
Discharge Information Plan Status:Home with No Needs Medically Cleared to Leave:04/26/2018 Discharge Date:04/26/2018 CM D/C Disposition:Home, Routine, Self-Care ADT D/C Disposition:Home, Routine, Self-Care Projected Discharge Date:04/26/2018 Transportation at D/C: Discharge Delay Reason: Follow-Up Date:04/26/2018 Discharge Slot: Final Diagnosis: Placement Information Patient Contact Information Contact Name:[place] Relationship: Address:[address] [place] [address] City:[place] Alternate Phone: [facility]/Zip Code:[place] [address] Email: Financial Information Financial Class:BCOP Primary Plan Desc:GUDELIA SANDERS PPO Primary Plan Number:[id number] Secondary Plan Desc: Secondary Plan Number: Assessment Information LACE LACE Length of stay for Answers: Less than 1 day current admission Acuity / Level of Answers: No Care: Did the patient have an inpatient admission? Comorbidities - select Answers: Other Notes: Hx of DVT; Factor 5 all that apply Leimani; HTN # of Emergency department Answers: 1-2 visits in the last 6 months Score: 2 Date Signed: 04/26/2018 11:59 AM Electronically Signed By:Annelise Peña RN Intervention Information
--- NOTE | 2018-04-26 18:03 | GDS ---
DISCHARGE DIAGNOSES: 1. Acute pulmonary embolus. 2. History of recurrent deep venous thrombosis. 3. Factor V Leiden. 4. Hypertension. HISTORY: The patient is a 62-year-old male with a history of previous DVTs and factor V Leiden who p resented with pleuritic chest pain and was found to have an acute pulmonary embolus. He was admitted to the hospital and has improved quite dramatically. His pleuritic chest pain is nearly resolved. He is on room air. His vital signs are very stable. He is anxious for discharge home. The patient clearly has an underlying hypercoagulable state. He has previously seen Dr. Sugey Olson in consultation. Given the fact both of his previous DVTs were provoked, they decided to make 1 last a ttempt at going without the full anticoagulation. It appears now that has failed and the patient is now resigned himself to lifelong anticoagulation and is willing. He previously did quite well with Ehsan stanley and desires that over a novel oral agent. He will discharge home with a Lovenox bridge. I spoke with his primary care, Dr. Alexander Daley, and he previously had a very high warfarin requirement, 12.5 mg p.o. daily. We will discharge him on 10 mg p.o. daily with very close followup with Dr. Daley. DISCHARGE MEDICATIONS: Please see computerized record for full detailed list. New medications: 1. Lovenox 100 mg subcu twice daily, to complete a full 5-day overlap. 2. Warfarin 10 mg p.o. daily. Discontinued medications: Aspirin 325 mg p.o. daily. ADDITIONAL DISCHARGE INSTRUCTIONS: 1. Check INR on Sunday in Dr. Daley's office. 2. Lifelong anticoagulation recommended. Greater than 30 minutes' time was spent arranging this discharge. Patient was seen and examined by panda montalvo on the day of discharge. /[id number]/MODL
== END 2018-04-26 12:46 | disposition home or self-care (01) ==
LOC: F2W 16:05
PROVIDERS: ADMIT Internal Medicine; ATTEND Internal Medicine
DX: I26.99 Other pulmonary embolism without acute cor pulmonale (principal); D68.2 Hereditary deficiency of other clotting factors; E86.9 Volume depletion, unspecified; I10 Essential (primary) hypertension; G47.30 Sleep apnea, unspecified; Z79.82 Long term (current) use of aspirin; Z86.718 Personal history of other venous thrombosis and embolism; Z96.653 Presence of artificial knee joint, bilateral
CPT/HCPCS: 71045; 71275; 93005; 96372; 96374; 96376; 99285; G0378; 84484-PO; J1650; J1885; Q9967